=== PATIENT | female | born 1955 | race Caucasian/White ===

== ENCOUNTER → 2018-02-27 | Day surgery (SDC) | payer OTHER ==
[~2018-02-27] MED LIST: ALBUTEROL0.63 MG/3 NEB; ALBUTEROL17 GM; AMMONIUM LACTATE; ATARAX; ATORVASTATIN CA20 MG PO; DULERA 100 MCG/13 GM INH; FENTANYL CITRATE/PF 100MCG/2 ML INJ ONE; HYDROXYZINE HCL25 MG PO; LEVOTHYROXINE75 MCG PO; LIPITOR20 MG PO; LOSARTAN POTASS25 MG PO; MIDAZOLAM HCL 2 MG/2 ML VIAL ONE; NIFEDIPINE ER30 M1 PO; NIFEDIPINE10 MG PO; PANTOPRAZOLE 40 MG 10ML VIAL ONE; PANTOPRAZOLE SO40 MG PO; PREDNISONE10 MG PO; PREMARIN0.625 MG PO; PROPOFOL IV EMULSION 10 MG/ML 50 ML VIAL ONE; VENTOLIN HFA18 GM INH; Z.0.DOXEPIN HCL25 MG PO; Z.0.LIPITOR10 MG PO; Z.0.PREMARIN0.625 MG; Z.0.TIROSINT75 MCG
--- OUTSIDE RECORDS SUMMARY | 2018-02-27 09:15 | XMS REPORT ---
Author Author [facility] Address Unknown Phone Unavailable Care Team Providers Care Liner Assembler Name Role Phone FAISAL CERDA Unavailable Unavailable Problems This patient has no known problems. Allergies, Adverse Reactions, Alerts This patient has no known allergies or adverse reactions. Medications This patient has no known medications. Results Test Description Test Time Test Comments Text Results Atomic Results Result Comments CHEST SINGLE (PORTABLE) [place] [id number] Patient Name: FLAVIO SANTOS MR #: [id number] : 1955 Age/Sex: 61/F Req #: [id number] Adm Physician: Ordered by: FAISAL CERDA MD Report #: [id number] Location: ER Room/Bed: Procedure: [id number] DX/CHEST SINGLE (PORTABLE) Exam Date: 05/30/17 Exam Time: 2215 REPORT STATUS: Signed EXAM: CHEST SINGLE (PORTABLE), AP 1 view DATE: 05/30/2017 9:55 PM Time stamp on exam: 2213 hours INDICATION: Chest pain COMPARISON: AP view of the chest April 27, 2016 FINDINGS: LINES/TUBES: None LUNGS: No consolidations or edema. Emphysematous changes. PLEURA: No effusions or pneumothorax. HEART AND MEDIASTINUM: Normal size and contour. BONES AND SOFT TISSUES: No acute findings. IMPRESSION: No acute thoracic abnormality. Signed by: Dr. Brenda Mathews M.D. on 05/30/2017 10:34 PM Dictated By: BRENDA MATHEWS MD 33 Transcribed By: ARIADNA on 05/30/172233 COPY TO: FAISLA CERDA MD
[2018-02-27 14:54] LABS: WBC,FECAL (FECAL LACTOFERRIN) NEGATIVE (NEGATIVE)
--- NOTE | 2018-02-27 16:16 | Operative Report ---
DATE OF PROCEDURE: February 27, 2018 REFERRING PHYSICIAN: Dr. Coleman Turner. PROCEDURE PERFORMED: Esophagogastroduodenoscopy with biopsies and colonoscopy with polypectomy and biopsies. INDICATIONS FOR ESOPHAGOGASTRODUODENOSCOPY: Bloating, early satiety, nausea and vomiting. INDICATIONS FOR COLONOSCOPY: Colorectal cancer screening. Personal history of colon polyps. Alternating bouts of constipation and diarrhea. MEDICATION: Patient was done under MAC. Please see anesthesiologist's note. PROCEDURE: With patient in the left lateral decubitus position, flexible fiberoptic Olympus gastroscope was introduced into the esophagus under direct visualization without any difficulty. There was focal nodularity noted in the cervical esophagus and that was biopsied. The rest of the esophagus appeared to be within normal limits. The scope was then advanced with ease into the stomach traversing a small sliding hiatal hernia. Mucosa overlying the antrum and the body revealed some diffuse erythema and mild to moderate edema and biopsies were obtained and sent to stain for H. pylori. The pylorus was of normal contour and shape. Was intubated with ease and the scope was advanced all the way to the 2nd portion of the duodenum. Biopsies were obtained from the proximal 2nd portion to rule out sprue considering patient's history of diarrhea. Mucosa overlying the duodenal bulb appeared to be within normal limits. The scope was then withdrawn back into the stomach retroflexing the mucosa overlying the fundus and the cardia appeared to be within normal limits. The scope was then straightened out. It was subsequently withdrawn. Patient tolerated procedure well. IMPRESSION: 1. Focal nodularity, cervical esophagus biopsied. 2. Small sliding hiatal hernia. 3. Gastritis biopsied. Biopsy sent stain for H. pylori. 4. Rule out sprue. PLAN: Follow up histology. Continue Protonix 40 mg 1 p.o. a.c. b.i.d. PROCEDURE: Patient was then turned around and after adequate lubrication of the anal canal a flexible fiberoptic Olympus colonoscope was inserted into the rectum with ease and advanced all the way to the cecum. Mucosa overlying the cecum appeared to be within normal limits. The ileocecal valve was intubated and the scope was advanced into the terminal ileum. Biopsies were obtained. The scope was then withdrawn back into the colon. Of note, the colon was excessively spastic and sharply angulated and tortuous. It was suboptimally examined. Whatever was visualized of the mucosa of the ascending colon appeared to be within normal limits. Two polyps were snared from the transverse colon. Some diverticular disease was noted in the sigmoid colon. The descending colon grossly appeared to be within normal limits. Five polyps were hot biopsied from the rectum. The scope was then retroflexed into the distal rectum and the area around the dentate line appeared to be within normal limits. The scope was then straightened out. It was subsequently withdrawn. Patient tolerated the procedure well. IMPRESSION 1. Colon polyps x2 snared. 2. Diverticulosis. 3. Rectal polyps times 5 hot biopsied. PLAN: Follow up histology. Follow up stool studies. Initiate VSL#3 DS one p.o. b.i.d. The patient might benefit from a followup colonoscopy in 1-2 years. Job#: [id number] GH cc:COLEMAN TURNER MD
[2018-02-28 13:48] LABS: C DIFFICILE TOXIN A&B AMP PROB NEGATIVE (NEGATIVE)
== END | disposition home or self-care (01) ==
LOC: OR 09:13
PROVIDERS: ATTEND Internal Medicine Gastroenterology
DX: K59.00 Constipation, unspecified (principal); D12.3 Benign neoplasm of transverse colon; K62.1 Rectal polyp; K29.50 Unspecified chronic gastritis without bleeding; K21.0 Gastro-esophageal reflux disease with esophagitis; K58.9 Irritable bowel syndrome, unspecified; K22.8 Other specified diseases of esophagus; K44.9 Diaphragmatic hernia without obstruction or gangrene; K57.30 Diverticulosis of large intestine without perforation or abscess without bleeding; K64.8 Other hemorrhoids; J44.9 Chronic obstructive pulmonary disease, unspecified; I10 Essential (primary) hypertension; E78.00 Pure hypercholesterolemia, unspecified; N30.90 Cystitis, unspecified without hematuria; Z88.5 Allergy status to narcotic agent; Z01.810 Encounter for preprocedural cardiovascular examination; Z85.828 Personal history of other malignant neoplasm of skin; Z87.891 Personal history of nicotine dependence; Z80.0 Family history of malignant neoplasm of digestive organs
CPT/HCPCS: 43239; 45384; 45385; 83630; 83993; 87045; 87177; 87328; 87493; 93005; J2250; 45378

== ENCOUNTER 2018-08-16 19:16 | Inpatient (IN) | payer OTHER ==
[~2018-08-16] VITALS: Ht 157.5 cm; Wt 66.8 kg
[~2018-08-16 19:16] MED LIST changes: +AMOXICILLIN500 MG PO; +BENZONATATE200 MG PO; +BEVESPI INH; -FENTANYL CITRATE/PF 100MCG/2 ML INJ ONE; -MIDAZOLAM HCL 2 MG/2 ML VIAL ONE; -PANTOPRAZOLE 40 MG 10ML VIAL ONE; +PROAIR HFA INH8.5 GM INH; -PROPOFOL IV EMULSION 10 MG/ML 50 ML VIAL ONE
--- OUTSIDE RECORDS SUMMARY | 2018-08-16 19:19 | XMS REPORT | Encounter Summary ---
Author Organization Unknown Address [address] [place] [address] Phone [phone] Reason for Visit Medical Complaint Instructions 1. Upper respiratory infection upper respiratory infection (cold): care instructions 2. Pain in throat rapid strep group A, throat sore throat: care instructions Discussion Note: None recorded. Plan of Care Patient Instructions otc mucinex as directed. follow up pcpc Reminders Provider Appointments None recorded. Lab Rapid Strep Group a, Throat 07/10/2017 [facility] Referral None recorded. Procedures None recorded. Surgeries None recorded. Imaging None recorded. Medications None recorded. Medications Administered None recorded. Vitals Height Weight BMI Blood Pressure 5 ft 3 in 120 lbs 21.3 kg/m2 130/84 mm[Hg] Lab Results Date Name Specimen Result Interpretation Description Value Range Status Address Rapid Strep Group a, Throat Result negative [facility]: [address] [place] [address] Swab Location Left and Right tonsillar pillars [facility]: [address] [place] [address] Allergies Code Code System Name Reaction Severity Status Onset 2670 RxNorm Codeine Itching Active 7052 RxNorm Morphine Itching Active Problems None recorded. Procedures Date Name Performed by Hysterectomy Information not available Vaccine List None recorded. Social History Smoking Status Never Smoker Past Encounters 07/10/2017 Upper Respiratory Infection; Pain in Throat Nasim Boyd [facility]: [address] [place] [address], Ph. History of Present Illness Throat-Oral Complaint Reported By: Patient HPI: Location: throat. Quality: sore throat. Severity: mild, moderate. Duration: 1 days. Onset/Timing: gradual. Context: no sick contacts, no foreign travel, non-smoker. Modifying factors: OTC medication. Associated Symptoms: no fever, no headache, no body aches, no sputum production, no shortness of breath, no wheezing, no change in number of pillows needed to sleep at night, no sweats, no significant weight gain, no significant weight loss, no morning cough, no vomiting, no diarrhea, no rash, no nausea, sore throat Review of Systems:ROS as noted in the HPI Review of Systems Basic Reported By: Patient Physical Exam Adult Basic, Adult Female Complete Reported By: Patient Constitutional: General Appearance: healthy-appearing, well-nourished, well-developed. Level of Distress: NAD. Ambulation: ambulating normally Psychiatric: Mental Status: active and alert Eyes: Lids and Conjunctivae: non-injected, no discharge Mvw-Pthl-Glkys-Throat: Ears: no lesions on external ear, no outer ear tenderness, EACs clear, TMs clear. Hearing: no hearing loss. Nose: no lesions on external nose, nares patent, no septal deviation, nasal passages clear, no sinus tenderness, no nasal discharge. Lips, Teeth, and Gums: no mouth or lip ulcers. Oropharynx: moist mucous membranes, no erythema, no exudates, tonsils not enlarged Neck: Neck: trachea midline. Lymph Nodes: no cervical LAD Lungs: Respiratory effort: no dyspnea, no tachypnea, no use of accessory muscles, no intercostal retractions. Auscultation: breath sounds normal Cardiovascular: Heart Auscultation: RRR, no murmurs
[2018-08-16] MEDS ORDERED: ALBUTEROL SULF 0.083% NEB SOLN 3 ML NEB NEB STA (19:24)
[2018-08-16] MEDS ORDERED: METHYLPREDNISOLONE SOD SUCC 125 MG/2ML VIAL IV ONE (19:30)
[2018-08-16] MEDS ORDERED: IPRATROPIUM BROMIDE 0.02% 2.5 ML NEB NEB ONE (19:30)
[2018-08-16 20:53] LABS: BASOPHILS # (AUTO) 0.1 (0.0-0.1); BASOPHILS % 0.3 % (0.0-1.0); HEMATOCRIT 39.6 % (34.2-44.1); HEMOGLOBIN 13.5 g/dL (12.0-16.0); LYMPHOCYTES # (AUTO) 0.8 (1.0-3.2); LYMPHOCYTES % 3.7 % (18.0-39.1); MEAN CORPUSCULAR HGB CONC 34.1 g/dL (31-35); MONOCYTES # (AUTO) 0.6 (0.2-0.8); MONOCYTES % 2.9 % (4.4-11.3); NEUTROPHILS # (AUTO) 17.6 (2.1-6.9); NEUTROPHILS % 87.1 % (38.7-80.0); PLATELET COUNT 303 x10e3/uL (140-360); RED CELL DISTRIBUTION WIDTH 13.2 % (11.7-14.4)
[2018-08-16 21:17] LABS: ALANINE AMINOTRANSFERASE 13 IU/L (0-55); ALBUMIN 3.7 g/dL (3.5-5.0); ALBUMIN/GLOBULIN RATIO 1.1 (0.8-2.0); ALKALINE PHOSPHATASE 66 IU/L (40-150); ANION GAP 17.7 mmol/L (8-16); BLOOD UREA NITROGEN 29 mg/dL (7-26); BUN/CREATININE RATIO 21 (6-25); CALCIUM 9.5 mg/dL (8.4-10.2); CARBON DIOXIDE 20 mmol/L (22-29); CHLORIDE 104 mmol/L (98-107); CREATINE KINASE 31 IU/L (29-168); EST GLOMERULAR FILTRATION RATE 38 ML/MIN (60-); GLUCOSE 142 mg/dL (74-118); POTASSIUM 3.7 mmol/L (3.5-5.1); SODIUM 138 mmol/L (136-145)
[2018-08-16 21:20] LABS: LYMPHOCYTES % (MANUAL) 2 % (19-48); MONOCYTES % (MANUAL) 3 % (3.4-9.0); NEUTROPHILS % (MANUAL) 94 % (40-74); RBC MORPHOLOGY COMMENT NORMAL
[2018-08-16 21:21] LABS: PLATELET ESTIMATE ADEQUATE; PLATELET MORPHOLOGY COMMENT NORMAL
--- NOTE | 2018-08-16 22:14 | Diagnostic Imaging Report ---
EXAMINATION: CHEST SINGLE (PORTABLE) INDICATION: Chest pain COMPARISON: Chest radiograph 06/11/2018 FINDINGS: AP view TUBES and LINES: None. LUNGS: Lungs are well inflated. Lungs are clear. There is no evidence of pneumonia or pulmonary edema. PLEURA: No pleural effusion or pneumothorax. HEART AND MEDIASTINUM: The cardiomediastinal silhouette is unremarkable. BONES AND SOFT TISSUES: No acute osseous lesion. Soft tissues are unremarkable. UPPER ABDOMEN: No free air under the diaphragm. IMPRESSION: No acute thoracic abnormality. Signed by: DR. Javed Ponce MD on 08/16/2018 10:10 PM
[2018-08-16 22:20] LABS: BILIRUBIN,URINE NEGATIVE (NEGATIVE); CLARITY,URINE CLEAR (CLEAR); COLOR,URINE YELLOW (YELLOW); KETONES,URINE NEGATIVE (NEGATIVE); LEUKOCYTE ESTERASE ,URINE NEGATIVE (NEGATIVE); NITRITE,URINE NEGATIVE (NEGATIVE); PROTEIN,URINE DIPSTICK NEGATIVE (NEGATIVE); URINE UROBILINOGEN 0.2 mg/dL (0.2 - 1)
[2018-08-16 22:34] LABS: BACTERIA,URINE FEW /HPF; EPITHELIAL CELLS,URINE FEW /LPF; RBC,URINE 0-5 /HPF (0-5); WBC,URINE (MAN) 0-5 /HPF (0-5)
[2018-08-16 23:45] VITALS: BP 188/89
[2018-08-16] MEDS ORDERED: SODIUM CHLORIDE 0.9% 50ML 50 ML ONE (23:47)
[2018-08-16] MEDS: CEFTRIAXONE SOD 1 GM VIAL IV SCH (23:49)
[2018-08-17 00:15] VITALS: BP 188/89
[2018-08-17] MEDS: AZITHROMYCIN 500MG/NS 250 ML 250 ML IV SCH ×2 (00:56→20:47)
[2018-08-17] MEDS: SODIUM CHLORIDE 0.9% 1000ML 1,000 ML IV SCH ×4 (00:56→22:00)
[2018-08-17] MEDS: METHYLPREDNISOLONE SOD SUCC 40 MG/ML VIAL IV SCH ×4 (00:56→20:46)
[2018-08-17] MEDS: ALBUTEROL/IPRATROPIUM 3 ML NEB NEB SCH ×6 (03:00→23:05)
[2018-08-17 05:00] VITALS: BP 161/75
[2018-08-17 05:28] LABS: BASOPHILS # (AUTO) 0.1 (0.0-0.1); BASOPHILS % 0.3 % (0.0-1.0); HEMATOCRIT 38.2 % (34.2-44.1); HEMOGLOBIN 12.7 g/dL (12.0-16.0); LYMPHOCYTES # (AUTO) 0.6 (1.0-3.2); MEAN CORPUSCULAR HGB CONC 33.2 g/dL (31-35); MEAN CORPUSCULAR VOLUME 90.3 fL (81-99); MONOCYTES # (AUTO) 0.4 (0.2-0.8); MONOCYTES % 1.8 % (4.4-11.3); NEUTROPHILS # (AUTO) 17.1 (2.1-6.9); NEUTROPHILS % 90.2 % (38.7-80.0); PLATELET COUNT 248 x10e3/uL (140-360); RED BLOOD COUNT 4.23 x10e6/uL (3.6-5.1); RED CELL DISTRIBUTION WIDTH 13.5 % (11.7-14.4)
[2018-08-17 05:48] LABS: ANION GAP 17.8 mmol/L (8-16); BLOOD UREA NITROGEN 29 mg/dL (7-26); BUN/CREATININE RATIO 26 (6-25); CALCIUM 9.1 mg/dL (8.4-10.2); CARBON DIOXIDE 21 mmol/L (22-29); CHLORIDE 109 mmol/L (98-107); CREATINE KINASE 31 IU/L (29-168); CREATININE, SERUM 1.12 mg/dL (0.57-1.11); EST GLOMERULAR FILTRATION RATE 49 ML/MIN (60-); GLUCOSE 126 mg/dL (74-118); POTASSIUM 3.8 mmol/L (3.5-5.1); SODIUM 144 mmol/L (136-145)
--- NOTE | 2018-08-17 06:46 | Diagnostic Imaging Report ---
EXAMINATION: CHEST 2 VIEWS INDICATION: COPD. Shortness of breath. COMPARISON: Chest radiograph 08/16/2018 FINDINGS: PA and lateral views TUBES and LINES: None. LUNGS: Lungs are well inflated. Increased hazy opacity in the lateral left lung base. There is no evidence of pulmonary edema. PLEURA: No pleural effusion or pneumothorax. HEART AND MEDIASTINUM: The cardiomediastinal silhouette is unremarkable. BONES AND SOFT TISSUES: No acute osseous lesion. Soft tissues are unremarkable. UPPER ABDOMEN: No free air under the diaphragm. IMPRESSION: Increased hazy opacity in the lateral left lung base may represent atelectasis or developing pneumonia. Signed by: DR. Javed Ponce MD on 08/17/2018 6:42 AM
[2018-08-17 07:33] LABS: BAND NEUTROPHILS % (MANUAL) 1 %; LYMPHOCYTES % (MANUAL) 11 % (19-48); METAMYELOCYTES % (MANUAL) 1 % (0-0); MONOCYTES % (MANUAL) 1 % (3.4-9.0); MYELOCYTES % (MANUAL) 1 % (0-0); NEUTROPHILS % (MANUAL) 85 % (40-74); PLATELET ESTIMATE ADEQUATE; PLATELET MORPHOLOGY COMMENT NORMAL; RBC MORPHOLOGY COMMENT NORMAL
[2018-08-17 07:42] VITALS: BP 173/80
[2018-08-17] MEDS ORDERED: ALBUTEROL SULF 0.083% NEB SOLN 3 ML NEB NEB PRN ×2 (08:00→11:15)
[2018-08-17] MEDS ORDERED: BENZONATATE 100 MG CAP PO PRN (08:00)
[2018-08-17] MEDS: LOSARTAN POTASSIUM 25 MG TAB PO SCH (09:14)
[2018-08-17] MEDS ORDERED: ALPRAZOLAM 0.25 MG TAB PO SCH (09:15)
[2018-08-17] MEDS: PANTOPRAZOLE SOD 40 MG TABEC PO SCH (09:15)
[2018-08-17 11:58] VITALS: BP 170/76
[2018-08-17] MEDS: NIFEDIPINE CR 30 MG TAB PO SCH ×2 (11:59→20:47)
--- NOTE | 2018-08-17 12:14 | Consultation ---
DATE OF CONSULTATION: PULMONARY CONSULTATION REASON FOR THE CONSULT: Asthma exacerbation. HPI: Ms. Erwin is a 62-year-old female who presented to the emergency room with the complaints of shortness of breath. Patient is a regular patient of Dr. Bae. She has history of asthma, and she was prescribed recently described Breo; however, she reacted to Breo and started having choking sensation, so it was stopped. She is currently not on any inhaler except rescue inhaler. She started having trouble breathing. She started having shortness of breath and not feeling well. She went to [facility] and they recommended the patient should come to the emergency room. She has been a smoker for 30 years. She quit smoking 2 years ago. She denies any nausea, vomiting, diarrhea, or focal weakness. She also denies any fever or chills. REVIEW OF SYSTEMS GENERAL: Denies any fever or chills. HEAD: Denies any head trauma. ENT: Denies any earache. CVS: Denies any chest pain. RESPIRATORY: Shortness of breath. GI: Denies any nausea or vomiting. The rest of the review systems is negative except as in HPI. PAST MEDICAL HISTORY: History of hypertension and hyperlipidemia. PAST SURGICAL HISTORY: Esophageal cyst removed in 2001, cyst from arm removed, hysterectomy. FAMILY AND SOCIAL HISTORY: Smoked for 30 years, quit in 2006, restarted and now quit again a year and a half ago. PHYSICAL EXAMINATION VITAL SIGNS: Temperature 97.9, pulse of 75, blood pressure 173/80, respiratory rate of 18, O2 sat 98%. HEENT: Head atraumatic, normocephalic. NECK: Supple. CHEST: Markedly reduced air entry bilaterally. HEART: S1, S2 audible. ABDOMEN: Soft, nontender, nondistended. EXTREMITIES: No clubbing, cyanosis, or edema. NEUROLOGICAL: She is awake and alert, following commands, responds to questions appropriately. IMAGING: Chest x-ray, which was done in the emergency room, showing some increased congestion and possible fluid in the fissure. LABS: Sodium 144, potassium 3.8, chloride 109, BUN 29, creatinine 1.12. Creatinine was 1.4 yesterday. White count of 19,000, hemoglobin 12.7, platelets 248. ASSESSMENT/PLAN: Ms. Erwin is a 62-year-old female. She presented to the emergency room with worsening shortness of breath, ear plugging, choking sensation, markedly reduced air entry. Chest x-ray is showing possibility of increased congestion and possible right middle lobe infiltrate. CURRENT PROBLEMS 1. Possible community-acquired pneumonia. 2. Acute asthma exacerbation. PATIENT IS ALLERGIC TO BREO. 3. Hypertension. 4. Leukocytosis. 5. Acute kidney injury, which is improving with intravenous hydration. PLAN 1. Agree with IV Solu-Medrol, IV Rocephin, and azithromycin for treatment for asthma exacerbation along with pneumonia. Patient is on IV fluids as well, which will be continued as renal failure is improving. 2. If the leukocytosis does not improve, we will consider doing a CT of the chest without contrast. Job#: [id number] MADONNA
[2018-08-17 13:34] LABS: CREATINE KINASE 52 IU/L (29-168)
[2018-08-17 15:30] VITALS: BP 141/67
[2018-08-17] MEDS ORDERED: FAMOTIDINE 20 MG TAB PO SCH (16:30)
[2018-08-17] MEDS: ALPRAZOLAM 0.25 MG TAB PO SCH (16:45)
[2018-08-17] MEDS: ENOXAPARIN SOD INJ 40 MG/0.4 ML SYR SC SCH (16:45)
[2018-08-17 20:00] VITALS: BP 140/66
[2018-08-17] MEDS: CEFTRIAXONE SOD 1 GM VIAL IV SCH (20:47)
[2018-08-17] MEDS: ATORVASTATIN 20 MG TAB PO SCH (20:47)
[2018-08-18] VITALS (8 sets, daily range): BP systolic 127–147; BP diastolic 66–86
[2018-08-18] MEDS: ALPRAZOLAM 0.25 MG TAB PO SCH ×3 (00:13→16:00)
[2018-08-18] MEDS: ALBUTEROL/IPRATROPIUM 3 ML NEB NEB SCH ×6 (03:10→22:57)
[2018-08-18] MEDS: LEVOTHYROXINE SODIUM 75 MCG TAB PO SCH (05:10)
[2018-08-18] MEDS: SODIUM CHLORIDE 0.9% 1000ML 1,000 ML IV SCH (05:15)
[2018-08-18 05:35] LABS: BASOPHILS % 0.2 % (0.0-1.0); LYMPHOCYTES # (AUTO) 0.5 (1.0-3.2); LYMPHOCYTES % 2.6 % (18.0-39.1); MEAN CORPUSCULAR HEMOGLOBIN 29.7 pg (28-32); MEAN CORPUSCULAR HGB CONC 32.4 g/dL (31-35); MEAN CORPUSCULAR VOLUME 91.6 fL (81-99); MONOCYTES # (AUTO) 0.8 (0.2-0.8); NEUTROPHILS # (AUTO) 16.6 (2.1-6.9); NEUTROPHILS % 89.4 % (38.7-80.0); PLATELET COUNT 251 x10e3/uL (140-360); RED BLOOD COUNT 4.04 x10e6/uL (3.6-5.1); RED CELL DISTRIBUTION WIDTH 14.2 % (11.7-14.4)
[2018-08-18 05:56] LABS: ANION GAP 15.8 mmol/L (8-16); BLOOD UREA NITROGEN 21 mg/dL (7-26); BUN/CREATININE RATIO 24 (6-25); CALCIUM 8.5 mg/dL (8.4-10.2); CARBON DIOXIDE 21 mmol/L (22-29); CHLORIDE 107 mmol/L (98-107); CREATININE, SERUM 0.87 mg/dL (0.57-1.11); EST GLOMERULAR FILTRATION RATE > 60 ML/MIN (60-); GLUCOSE 125 mg/dL (74-118); POTASSIUM 3.8 mmol/L (3.5-5.1); SODIUM 140 mmol/L (136-145)
[2018-08-18] MEDS: LOSARTAN POTASSIUM 25 MG TAB PO SCH (08:22)
[2018-08-18] MEDS: NIFEDIPINE CR 30 MG TAB PO SCH ×2 (08:22→21:06)
[2018-08-18] MEDS: PANTOPRAZOLE SOD 40 MG TABEC PO SCH (08:22)
[2018-08-18] MEDS: METHYLPREDNISOLONE SOD SUCC 40 MG/ML VIAL IV SCH ×2 (08:22→21:06)
[2018-08-18 11:51] LABS: BAND NEUTROPHILS % (MANUAL) 3 %; LYMPHOCYTES % (MANUAL) 3 % (19-48); MONOCYTES % (MANUAL) 5 % (3.4-9.0); NEUTROPHILS % (MANUAL) 89 % (40-74)
[2018-08-18 11:52] LABS: PLATELET ESTIMATE ADEQUATE; PLATELET MORPHOLOGY COMMENT NORMAL; RBC MORPHOLOGY COMMENT NORMAL
--- NOTE | 2018-08-18 15:06 | Diagnostic Imaging Report ---
EXAM: CT Chest WITHOUT contrast INDICATION: ^pneumonia COMPARISON: Chest x-ray dated 08/17/2018 TECHNIQUE: Chest was scanned utilizing a multidetector helical scanner from the lung apex through the level of the adrenal glands without administration of IV contrast. Absence of intravenous contrast decreases sensitivity for detection of lymphadenopathy and vascular pathology. Coronal and sagittal reformations were obtained. Routine protocol was performed. IV CONTRAST: None COMPLICATIONS: None RADIATION DOSE: Total DLP: 469.84 mGy*cm Estimated effective dose: (DLP x 0.014 x size factor) mSv CTDIvol has been reviewed. It is below the limits set by the Radiation Protocol Committee (RPC). FINDINGS: LINES/ TUBES: None. LUNGS AND AIRWAYS: Upper lobe predominant centrilobular emphysematous changes of the lungs. No focal consolidation. Airways are normal. PLEURA: The pleural spaces are clear. HEART AND MEDIASTINUM: No mediastinal, hilar or axillary lymphadenopathy. The heart is normal in size.. There is no pericardial effusion. Aorta measures 3.8 cm at the level of the right pulmonary artery. UPPER ABDOMEN: Unremarkable. BONES: The visualized bony thorax is within normal limits. SOFT TISSUES: Unremarkable. IMPRESSION: Upper lobe predominant emphysematous changes of the lungs. No focal consolidation or evidence of pneumonia. Signed by: Dr. Yony Manzano MD on 08/18/2018 3:03 PM
[2018-08-18] MEDS: ENOXAPARIN SOD INJ 40 MG/0.4 ML SYR SC SCH (16:49)
[2018-08-18] MEDS: BUDESONIDE/FORMOTEROL 160/4.5MCG INHALER INH SCH (19:42)
[2018-08-18] MEDS ORDERED: ALPRAZOLAM 0.5 MG TAB PO ONE (20:45)
[2018-08-18] MEDS: ATORVASTATIN 20 MG TAB PO SCH (21:06)
[2018-08-18] MEDS: CEFTRIAXONE SOD 1 GM VIAL IV SCH (21:29)
[2018-08-18] MEDS: AZITHROMYCIN 500MG/NS 250 ML 250 ML IV SCH (22:12)
[2018-08-19] VITALS (8 sets, daily range): BP systolic 124–135; BP diastolic 66–80
[2018-08-19] MEDS: ALPRAZOLAM 0.25 MG TAB PO SCH ×3 (00:37→16:45)
[2018-08-19] MEDS: SODIUM CHLORIDE 0.9% 1000ML 1,000 ML IV SCH ×4 (02:36→23:44)
[2018-08-19] MEDS: ALBUTEROL/IPRATROPIUM 3 ML NEB NEB SCH ×5 (03:27→19:50)
[2018-08-19] MEDS: LEVOTHYROXINE SODIUM 75 MCG TAB PO SCH (05:59)
[2018-08-19] MEDS: BUDESONIDE/FORMOTEROL 160/4.5MCG INHALER INH SCH ×2 (07:25→19:50)
[2018-08-19] MEDS: PANTOPRAZOLE SOD 40 MG TABEC PO SCH (07:30)
[2018-08-19] MEDS: NIFEDIPINE CR 30 MG TAB PO SCH ×2 (09:00→21:36)
[2018-08-19] MEDS: LOSARTAN POTASSIUM 25 MG TAB PO SCH (09:00)
[2018-08-19] MEDS: ENOXAPARIN SOD INJ 40 MG/0.4 ML SYR SC SCH (16:45)
[2018-08-19] MEDS ORDERED: METHYLPREDNISOLONE SOD SUCC 40 MG/ML VIAL IV SCH (21:00)
[2018-08-19] MEDS: ATORVASTATIN 20 MG TAB PO SCH (21:36)
[2018-08-19] MEDS: FAMOTIDINE 20 MG TAB PO SCH (21:36)
[2018-08-19] MEDS: CEFTRIAXONE SOD 1 GM VIAL IV SCH (21:46)
[2018-08-19] MEDS: AZITHROMYCIN 500MG/NS 250 ML 250 ML IV SCH (22:26)
[2018-08-20] VITALS (7 sets, daily range): BP systolic 127–164; BP diastolic 62–90
[2018-08-20] MEDS: ALPRAZOLAM 0.25 MG TAB PO SCH ×3 (00:08→16:42)
[2018-08-20] MEDS: ALBUTEROL/IPRATROPIUM 3 ML NEB NEB SCH ×6 (00:30→18:45)
--- NOTE | 2018-08-20 01:13 | Consultation ---
DATE OF CONSULTATION: August 19, 2018 HOSPITAL CONSULTATION HISTORY OF PRESENT ILLNESS: I was kindly asked to see this pleasant 62-year-old woman for evaluation of possible upper airway obstruction. The patient reports a several week history of progressive sensation that her throat is closing off with pain radiating to her left ear. She has episodes of her throat closing off she has difficulty breathing. She also has a history of progressive hoarseness, difficulty swallowing, a foreign body sensation in her throat, and frequent throat clearing. HISTORY OF PRESENT ILLNESS, PAST MEDICAL HISTORY, AND PAST SURGICAL HISTORY: Reviewed in detail in the chart. PHYSICAL EXAMINATION: The tympanic membranes and external auditory canals were normal. She had a moderate nasal septal deviation to the left. There was crusting of the anterior nasal cavity secondary to nasal prong oxygen. Oral cavity examination was unremarkable. Posterior pharyngeal wall was unremarkable. She had no palpable cervical adenopathy. On fiberoptic laryngoscopy, she was noted to have normal vocal cord motion, there were no masses, however, there was a dilated blood vessel with a small amount of hemorrhage into the left vocal cord. She had moderate edema and moderate erythema of the posterior commissure of the larynx. The visualized portion of subglottis was normal. ASSESSMENT: 1. Laryngopharyngeal reflux. 2. Laryngeal spasm. 3. Hoarseness. 4. Dysphagia. 5. Otalgia, probably secondary to the bleeding in the left vocal cord with no primary otologic pathology identified. PLAN: 1. Pepcid 20 mg p.o. nightly. 2. Protonix 40 mg before breakfast. 3. Outpatient evaluation and treatment. 4. Diet treatment for laryngopharyngeal reflux was discussed in detail with the patient. Thank you very much. Job#: [id number]
[2018-08-20 04:56] LABS: BASOPHILS % 0.3 % (0.0-1.0); EOSINOPHILS % 0.1 % (0.0-6.0); HEMOGLOBIN 12.1 g/dL (12.0-16.0); LYMPHOCYTES # (AUTO) 0.9 (1.0-3.2); LYMPHOCYTES % 9.8 % (18.0-39.1); MEAN CORPUSCULAR HEMOGLOBIN 29.9 pg (28-32); MEAN CORPUSCULAR HGB CONC 32.7 g/dL (31-35); MEAN CORPUSCULAR VOLUME 91.4 fL (81-99); MONOCYTES # (AUTO) 0.6 (0.2-0.8); MONOCYTES % 5.9 % (4.4-11.3); NEUTROPHILS # (AUTO) 7.6 (2.1-6.9); NEUTROPHILS % 79.2 % (38.7-80.0); PLATELET COUNT 222 x10e3/uL (140-360); RED BLOOD COUNT 4.05 x10e6/uL (3.6-5.1); RED CELL DISTRIBUTION WIDTH 13.5 % (11.7-14.4)
[2018-08-20 05:23] LABS: BLOOD UREA NITROGEN 20 mg/dL (7-26); BUN/CREATININE RATIO 25 (6-25); CARBON DIOXIDE 23 mmol/L (22-29); CHLORIDE 106 mmol/L (98-107); CREATININE, SERUM 0.79 mg/dL (0.57-1.11); EST GLOMERULAR FILTRATION RATE > 60 ML/MIN (60-); GLUCOSE 107 mg/dL (74-118); SODIUM 137 mmol/L (136-145)
[2018-08-20] MEDS: LEVOTHYROXINE SODIUM 75 MCG TAB PO SCH (05:40)
[2018-08-20] MEDS: SODIUM CHLORIDE 0.9% 1000ML 1,000 ML IV SCH ×2 (07:15→16:43)
[2018-08-20] MEDS: BUDESONIDE/FORMOTEROL 160/4.5MCG INHALER INH SCH ×2 (07:30→18:45)
[2018-08-20] MEDS ORDERED: PANTOPRAZOLE SOD 40 MG TABEC PO SCH (07:30)
[2018-08-20] MEDS: NIFEDIPINE CR 30 MG TAB PO SCH ×2 (09:00→21:00)
[2018-08-20] MEDS ORDERED: PREDNISONE 20 MG TAB PO SCH (09:00)
[2018-08-20] MEDS: LOSARTAN POTASSIUM 25 MG TAB PO SCH (09:00)
[2018-08-20] MEDS: ENOXAPARIN SOD INJ 40 MG/0.4 ML SYR SC SCH (16:42)
[2018-08-20] MEDS ORDERED: FAMOTIDINE20 MG PO (20:45)
[2018-08-20] MEDS ORDERED: BENZONATATE200 MG PO (20:45)
[2018-08-20] MEDS ORDERED: KEFLEX500 MG PO (20:45)
[2018-08-20] MEDS ORDERED: AZITHROMYCIN500 MG PO (20:45)
[2018-08-20] MEDS ORDERED: PREDNISONE20 MG PO (20:45)
[2018-08-20] MEDS ORDERED: NIFEDIPINE ER30 M1 PO (20:45)
[2018-08-20] MEDS ORDERED: ALPRAZOLAM0.25 MG PO (20:45)
[2018-08-20] MEDS: FAMOTIDINE 20 MG TAB PO SCH (21:00)
[2018-08-20] MEDS: ATORVASTATIN 20 MG TAB PO SCH (21:00)
[2018-08-21] MEDS ORDERED: PREDNISONE 20 MG TAB PO SCH (09:00)
[2018-09-12] MEDS ORDERED: SPIRIVA18 MCG INH (12:51)
[2018-09-12] MEDS ORDERED: SERTRALINE HCL50 MG PO (12:51)
[2018-09-12] MEDS ORDERED: PROAIR HFA INH8.5 GM INH (12:52)
[2018-09-12] MEDS ORDERED: PROBIOTIC & AC1 EACH PO (12:53)
== END 2018-08-20 21:44 | disposition home or self-care (01) | DRG 202 ==
LOC: ER 19:16 → ERHOLD 23:09 → IMCU 08-17 00:05 → OBSVTOIN 08-18 04:13 → MED/SURG2 08-18 08:40
PROVIDERS: ADMIT Internal Medicine; ATTEND Internal Medicine
DX: J45.901 Unspecified asthma with (acute) exacerbation (principal); J18.9 Pneumonia, unspecified organism; J44.1 Chronic obstructive pulmonary disease with (acute) exacerbation; N17.9 Acute kidney failure, unspecified; J38.5 Laryngeal spasm; R13.10 Dysphagia, unspecified; R49.0 Dysphonia; H92.02 Otalgia, left ear; R04.1 Hemorrhage from throat; I10 Essential (primary) hypertension; D72.829 Elevated white blood cell count, unspecified
CPT/HCPCS: 36415; 71045; 71046; 71250; 80048; 80053; 81001; 82550; 82553; 82948; 83880; 84484; 85025; 87040; 93005; 94060; 94640; 96361; 99284; G0378; J0456; J0696; J1650; J2920; J2930; J7030

== ENCOUNTER → 2018-09-13 | Day surgery (SDC) | payer MEDICARE, OTHER ==
--- NOTE | 2018-09-12 13:21 | Diagnostic Imaging Report ---
Examination: Single AP view of the chest. COMPARISON: CT chest 08/18/2018 INDICATION: Preoperative study for esophagogastroduodenoscopy DISCUSSION: The lungs are hyperinflated with hyperlucency in the apices compatible with emphysematous changes as described on comparison CTA. No airspace consolidation, pleural effusion, or pneumothorax. Tortuous thoracic aorta with otherwise normal cardiomediastinal contour. No acute osseous abnormality. IMPRESSION: No acute cardiopulmonary abnormality. Advanced emphysematous changes as seen on comparison CT 08/18/2018. Signed by: Dr. Nawaf Tomlin M.D. on 09/12/2018 1:18 PM
[2018-09-12 13:26] LABS: BASOPHILS # (AUTO) 0.1 (0.0-0.1); BASOPHILS % 0.6 % (0.0-1.0); EOSINOPHILS # (AUTO) 0.1 (0.0-0.4); EOSINOPHILS % 1.6 % (0.0-6.0); HEMATOCRIT 40.2 % (34.2-44.1); HEMOGLOBIN 13.4 g/dL (12.0-16.0); LYMPHOCYTES # (AUTO) 1.1 (1.0-3.2); LYMPHOCYTES % 13.1 % (18.0-39.1); MEAN CORPUSCULAR HEMOGLOBIN 30.8 pg (28-32); MEAN CORPUSCULAR HGB CONC 33.3 g/dL (31-35); MEAN CORPUSCULAR VOLUME 92.4 fL (81-99); MONOCYTES # (AUTO) 0.4 (0.2-0.8); MONOCYTES % 4.7 % (4.4-11.3); NEUTROPHILS # (AUTO) 6.7 (2.1-6.9); NEUTROPHILS % 78.2 % (38.7-80.0); PLATELET COUNT 213 x10e3/uL (140-360); RED BLOOD COUNT 4.35 x10e6/uL (3.6-5.1); RED CELL DISTRIBUTION WIDTH 13.2 % (11.7-14.4)
[~2018-09-13] MED LIST changes: +ALPRAZOLAM0.25 MG PO; +AZITHROMYCIN500 MG PO; +FAMOTIDINE20 MG PO; +FENTANYL CITRATE/PF 100MCG/2 ML INJ ONE; +KEFLEX500 MG PO; +LIDOCAINE HCL 2% LOCAL INJ 5 ML SDV VIAL INJ ONE; +MIDAZOLAM HCL 2 MG/2 ML VIAL ONE; +PREDNISONE20 MG PO; +PROBIOTIC & AC1 EACH PO; +PROPOFOL IV EMULSION 10 MG/ML 50 ML VIAL ONE; +SERTRALINE HCL50 MG PO; +SPIRIVA18 MCG INH
[2018-09-13 10:45] VITALS: BP 160/88
--- NOTE | 2018-09-13 13:23 | Operative Report ---
DATE OF PROCEDURE: September 13, 2018 REFERRING PHYSICIAN: Dr. Coleman Turner PROCEDURES PERFORMED 1. Esophagogastroduodenoscopy with esophageal dilatation. 2. Pyloric channel dilatation. INDICATIONS FOR PROCEDURE: Dysphagia to solids. MEDICATION: Patient was done under MAC. Please see anesthesiologist's note. PROCEDURE: With the patient in the left lateral decubitus position, the flexible fiberoptic Olympus colonoscope was inserted into the esophagus under direct visualization without any difficulty. There was a stricture noted in the cervical esophagus that was dilated to size 50-Montserratian Veronica. The scope was then advanced with ease into the distal esophagus. A minute tongue of velvety red mucosa was noted to extend proximally from the GE junction and was biopsied to rule out Rapp's. The scope was then advanced with ease into the stomach. Mucosa overlying the antrum revealed some patchy intense erythema and moderate edema, and biopsies were obtained and sent to stain for H. pylori. The pyloric channel was strictured and could not be traversed with the scope. That was dilated to size 20 mm per TTS balloon dilators. The scope was then advanced with ease all the way to the 2nd portion of the duodenum. The scope was then withdrawn slowly. The mucosa overlying the proximal 2nd portion and the duodenal bulb appeared to be within normal limits. The scope was then withdrawn back into the stomach and retroflexed. Mucosa overlying the fundus and the cardia appeared to be within normal limits. The scope was then straightened out. The stomach was decompressed. The scope was subsequently withdrawn. Patient tolerated the procedure well. IMPRESSION 1. 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 2. Rule out Rapp's esophagus. 3. Gastritis, biopsied. Biopsies sent to stain for Helicobacter pylori. 4. 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 PLAN: Follow up histology. Continue Protonix 40 mg 1 p.o. a.c. b.i.d. Job#: [id number] RI cc:COLEMAN TURNER MD
== END | disposition home or self-care (01) ==
LOC: ENDO 06:56
PROVIDERS: ATTEND Internal Medicine Gastroenterology
DX: K22.2 Esophageal obstruction (principal); K29.70 Gastritis, unspecified, without bleeding; K21.0 Gastro-esophageal reflux disease with esophagitis; K31.1 Adult hypertrophic pyloric stenosis; K31.89 Other diseases of stomach and duodenum; E78.00 Pure hypercholesterolemia, unspecified; J44.9 Chronic obstructive pulmonary disease, unspecified; I10 Essential (primary) hypertension; F41.9 Anxiety disorder, unspecified; Z88.6 Allergy status to analgesic agent; Z01.810 Encounter for preprocedural cardiovascular examination; Z01.812 Encounter for preprocedural laboratory examination; Z01.818 Encounter for other preprocedural examination; Z80.0 Family history of malignant neoplasm of digestive organs; Z85.828 Personal history of other malignant neoplasm of skin; Z87.891 Personal history of nicotine dependence
CPT/HCPCS: 36415; 43239; 43245; 43450; 71046; 85025; 88305; 88312; 93005; C1726; J2001; J2250

== ENCOUNTER → 2018-10-18 | Day surgery (SDC) | payer MEDICARE, OTHER ==
[~2018-10-18] MED LIST changes: -LIDOCAINE HCL 2% LOCAL INJ 5 ML SDV VIAL INJ ONE
[2018-10-18 16:15] VITALS: BP 119/65
--- NOTE | 2018-10-18 16:35 | Operative Report ---
DATE OF PROCEDURE: October 18, 2018 REFERRING PHYSICIAN: Dr. Coleman Turner PROCEDURE PERFORMED: Esophagogastroduodenoscopy with esophageal brushings and esophageal dilatation. INDICATIONS FOR EGD: Dysphagia to solids, history of esophageal stricture dilated to a size 50-Japanese Veronica on September 13, 2018. MEDICATION: Patient was done under MAC. Please see anesthesiologist's note. PROCEDURE: With the patient in the left lateral decubitus position, the flexible fiberoptic Olympus gastroscope was introduced into the esophagus under direct visualization without any difficulty. There were some whitish plaques noted in the cervical esophagus. Those were brushed and sent to stain for valerie. The esophagus was then dilated to size 54-Japanese Veronica. The scope was then advanced with ease into the stomach. Mucosa overlying the antrum revealed some patchy intense erythema. This was biopsied on the previous endoscopy, and no biopsies were done on this procedure. Pylorus was of normal contour and shape. It was intubated with ease. The scope was advanced all the way to the 2nd portion of the duodenum. The scope was then withdrawn slowly. Mucosa overlying the proximal 2nd portion and the duodenal bulb appeared to be within normal limits. The scope was then withdrawn back into the stomach and retroflexed. The mucosa overlying the fundus and the cardia appeared to be within normal limits. The scope was then straightened out. It was subsequently withdrawn. Patient tolerated the procedure well. IMPRESSION 1. Rule out Valerie esophagitis. 2. Esophagus dilated to a size 54-Japanese Veronica. 3. Gastritis. PLAN: Follow up brushings. Continue Protonix 40 mg 1 p.o. a.c. b.i.d. Job#: [id number] RI cc:COLEMAN TURNER MD
== END | disposition home or self-care (01) ==
LOC: OR 09:54
PROVIDERS: ATTEND Internal Medicine Gastroenterology
DX: B37.81 Candidal esophagitis (principal); K29.70 Gastritis, unspecified, without bleeding; K22.2 Esophageal obstruction; Z86.010 Personal history of colon polyps; J44.9 Chronic obstructive pulmonary disease, unspecified; I10 Essential (primary) hypertension; K21.9 Gastro-esophageal reflux disease without esophagitis; E78.00 Pure hypercholesterolemia, unspecified; Z88.6 Allergy status to analgesic agent; Z85.828 Personal history of other malignant neoplasm of skin; Z87.891 Personal history of nicotine dependence; Z80.0 Family history of malignant neoplasm of digestive organs
CPT/HCPCS: 43235; 43450; 87106; 87205; J2250

== ENCOUNTER → 2018-11-04 | Outpatient (CLI) | payer MEDICARE, OTHER ==
[~2018-11-04] MED LIST changes: -FENTANYL CITRATE/PF 100MCG/2 ML INJ ONE; -MIDAZOLAM HCL 2 MG/2 ML VIAL ONE; -PROPOFOL IV EMULSION 10 MG/ML 50 ML VIAL ONE; +SINCALIDE 3 MCG/VIAL INJ ONE
--- NOTE | 2018-11-04 10:45 | Diagnostic Imaging Report ---
EXAM: Gallbladder Ultrasound INDICATION: Right abdominal pain ^HEARTBURN COMPARISON: None. TECHNIQUE: Transverse and longitudinal images of the right upper quadrant of the abdomen were obtained. FINDINGS: Liver: Normal appearance measuring 12.1 cm Gallbladder: Stones/Sludge: None Wall: 0.3 cm Appearance: No wall thickening, pericholecystic fluid or hydrops. Sonographic Vaca's Sign: Negative Bile Ducts: Intrahepatic Ducts: No dilatation Extrahepatic Ducts: Common bile duct measures 0.2 cm, no dilatation The main portal vein is normal in appearance measuring 0.8 cm. The right kidney is normal in appearance measuring 8.2 cm. No renal stones are seen. The pancreas is unremarkable. The abdominal aorta and inferior vena cava are unremarkable. Free Fluid: No ascites or pleural effusion IMPRESSION: No gallbladder stones or sludge is seen. No ductal dilatation is seen. No renal stones are seen. Signed by: Dr. Brian Andrade M.D. on 11/04/2018 10:41 AM
--- NOTE | 2018-11-04 14:25 | Diagnostic Imaging Report ---
Hepatobiliary Scan with Gallbladder Ejection Fraction Clinical information: 63 F with heartburn and abdominal tenderness Report: Following intravenous administration of 6.5 millicuries of Tc-99m mebrofenin, dynamic images of the abdomen in the anterior projection were obtained through 40 minutes. Sincalide (CCK analog) 1.3 micrograms was administered intravenously over 30 minutes with additional imaging for determination of gallbladder ejection fraction. Perfusion to the liver is normal. Extraction of tracer from the blood pool by the liver parenchyma is normal. Tracer is seen promptly within the biliary tract. The gallbladder begins to fill by 34 minutes post-injection of tracer and fills adequately. Tracer is seen in the small bowel by 15 minutes. The gallbladder ejection fraction with administration of sincalide is 43% (normal greater than 40%). Impression: 1. Filling of the gallbladder excludes the diagnosis of acute cystic duct obstruction/acute cholecystitis. 2. Normal gallbladder ejection fraction of 43% does not support the clinical diagnosis of chronic cholecystitis/gallbladder dyskinesia. Signed by: Dr. Jazmine Jeffery M.D. on 11/04/2018 2:22 PM
== END ==
LOC: US 09:37
PROVIDERS: ATTEND Internal Medicine Gastroenterology
DX: R12 Heartburn (principal)
CPT/HCPCS: 76705; 78227; A9537; J2805